=== PATIENT | male | born 1960 | race Caucasian/White ===

== ENCOUNTER 2017-04-12 10:36 | Day surgery (SDC) | payer OTHER ==
[2017-04-12] VITALS (10 sets, daily range): BP systolic 104–116; BP diastolic 66–77; PULSE 50–93; RESP 15–34; Ht 180.3 cm; Wt 72.0 kg
[~2017-04-12] VITALS: Ht 180.3 cm; Wt 72.0 kg
[2017-04-12 11:28] LABS: ADD SCAN DIFF NO
[2017-04-12 11:30] LABS: BASOPHIL # 0.1 10^3/ul (0.0-0.1); BASOPHILS % 0.8 % (0.0-2.0); EOSINOPHILS # 0.2 10^3/ul (0.0-0.5); EOSINOPHILS % 1.9 % (0.0-7.0); HEMATOCRIT 47.1 % (42.0-52.0); HEMOGLOBIN 16.4 g/dl (14.0-18.0); LYMPHOCYTES # 2.4 10^3/ul (0.8-2.9); LYMPHOCYTES % 30.3 % (15.0-51.0); MEAN CORPUSCULAR HEMOGLOBIN 31.8 pg (29.0-33.0); MEAN CORPUSCULAR HGB CONC 34.8 g/dl (32.0-37.0); MEAN CORPUSCULAR VOLUME 91.3 fl (82.0-101.0); MEAN PLATELET VOLUME 10.7 fl (7.4-10.4); MONOCYTE # 0.6 10^3/ul (0.3-0.9); MONOCYTES % 7.6 % (0.0-11.0); NEUTROPHIL # 4.7 10^3/ul (1.6-7.5); PLATELET COUNT 210 10^3/UL (140-415); RED BLOOD COUNT 5.16 10^6/ul (4.70-6.10); RED CELL DISTRIBUTION WIDTH 12.5 % (11.5-14.5); WHITE BLOOD COUNT 7.9 10^3/ul (4.8-10.8)
[2017-04-12] MEDS ORDERED: LACTATED RINGER'S 1,000 ML IV SCH (11:30)
[2017-04-12 11:46] LABS: INR 1.09; PROTIME 14.1 Sec (12.2-14.2); PT RATIO 1.1
[2017-04-12 11:47] LABS: PARTIAL THROMBOPLASTIN TIME 25.4 Sec (25.0-35.0)
[2017-04-12] MEDS ORDERED: BUPIVACAINE 0.5%/EPI (SDV) 10 ML INJ ONE (12:37)
[2017-04-12] MEDS ORDERED: LIDOCAINE 2%/EPI 30 ML INJ ONE (12:37)
--- NOTE | 2017-04-12 12:37 | HPN ---
Date/Time of Note Date/Time of Note DATE: 04/12/17 TIME: 12:37 Interval H&P Admission Note Pt. seen H&P reviewed: No system changes ADONAY RAMOS MD Apr 12, 2017 12:37
[2017-04-12] MEDS ORDERED: METOCLOPRAMIDE 10 MG INJ ONE (12:48)
[2017-04-12] MEDS ORDERED: MIDAZOLAM 1 MG/ML 2 ML INJ ONE (12:48)
[2017-04-12] MEDS ORDERED: PROPOFOL 20 ML ONE (12:48)
[2017-04-12] MEDS ORDERED: FENTAnyl 50 MCG/ML VIAL ONE (12:52)
[2017-04-12] MEDS ORDERED: HYDROmorphONE (0.2 MG/ML) 10ML SYG IV PRN ×3 (13:30)
[2017-04-12] MEDS ORDERED: ONDANSETRON 4 MG INJ IV PRN ×2 (13:30→14:30)
[2017-04-12] MEDS ORDERED: OXYCODONE/ACETAMINOPHEN (5/325) TAB PO PRN ×2 (13:30)
[2017-04-12] MEDS ORDERED: DIPHENHYDRAMINE 50 MG INJ IV PRN (13:30)
[2017-04-12] MEDS ORDERED: MEPERIDINE 25 MG INJ IV PRN (13:30)
[2017-04-12] MEDS ORDERED: METOCLOPRAMIDE 10 MG INJ IV PRN (13:30)
--- NOTE | 2017-04-12 14:10 | RADRPT ---
PROCEDURE: XR Chest. CLINICAL INDICATION: Preoperative. Skin cancer. TECHNIQUE: Single frontal view. COMPARISON: None. FINDINGS: The lungs are clear. The heart size is normal. There is no pleural effusion. There is no pneumothorax. IMPRESSION: 1. Normal chest radiograph. RPTAT: QQ .Stu Laws MD, MD Date Time Electronically viewed and signed by .Stu Laws MD, on 04/12/2017 14:09 .R/
--- NOTE | 2017-04-12 14:21 | OPR ---
Date/Time of Note Date/Time of Note DATE: 04/12/17 TIME: 14:16 Operative Report Free Text/Dictation Plastic Surgery Operative Report Preoperative diagnosis: left nose basal cell Postoperative diagnosis: same Procedure: left nose basal cell excision and flap Surgeon: иван Pappas.: n/a Anesthesia: gen EBL: min IV fluids: per flow sheet Findings: n/a Complications:none Dispo:home Indications for procedure: 57-year-old male presents today for excision of a left nose basal cell with a flap closure. The risks, benefits, alternatives of performing this procedure were discussed with the patient including the risks of bleeding, infection, wound healing problems, cosmetic deformity, distortion of normal structures, recurrence, need for revision, and the patient states that he understands these risks and would like to proceed with the procedure. All questions were answered, no guarantees were given with regards to the outcome of this procedure. Description of procedure: The patient was brought to the operating room at [facility] where general anesthesia was induced and the patient was prepped and draped in usual sterile fashion. 5 cc of a solution containing 2.5 cc of 0.25% Marcaine with 1: 200,000 epinephrine as well as 2.5 cc of 2% lidocaine with 1: 200,000 epinephrine were injected into the planned incision site. A 1 mm margin was marked around the lesion. This was incised with a 15 blade and then the lesion was excised in its entirety with the scissors. This was sent for pathology with a short stitch superior and long stitch lateral. The medial, superior, and lateral margins were positive. Therefore, an additional crescent of tissue was taken in these areas. These returned as negative. Final incision size was 1.5 x 1 cm. Hemostasis was achieved with the electrocautery. The wound was inspected. In order to distort the left eyelid and nose, a rotation flap was planned from the nose with a medial base. This was marked with a marking pen. The flap was incised with a 15 blade. It was rotated laterally. Significant undermining was performed underneath the flap and circumferentially. A small back cut was made to facilitate rotation. The flap came together without undue tension. Therefore it was inset with 5-0 Vicryl suture and 5-0 nylon suture. It was dressed with Steri-Strips. Flap size was 1.5 x 1.5 cm. The patient tolerated procedure well, there were no complications, follow-up information and wound care instructions were given ADONAY RAMOS MD Apr 12, 2017 14:21
[2017-04-12] MEDS ORDERED: morphine 2 MG INJ IV PRN (14:30)
[2017-04-12] MEDS ORDERED: HYDROCODONE/APAP (5/325) TAB PO PRN (14:30)
--- NOTE | 2017-04-12 15:30 | RADRPT ---
Vent Rate: 63 bpm RR Interval: 0 msec VT Interval: 136 msec QRS Duration: 90 msec QT Interval: 398 msec QTC Interval: 407 msec P-R-T [place]: 80 - 83 - 77 degrees Normal sinus rhythm Normal ECG Electronically Signed By: Brayden Sweeney [id number]
== END 2017-04-12 15:40 | disposition home or self-care (01) ==
LOC: SDS 10:36
PROVIDERS: ATTEND Surgery Plastic and Reconstructive Surgery
DX: C44.311 Basal cell carcinoma of skin of nose (principal)
CPT/HCPCS: 14060; 71010; 85025; 85610; 85730; 88305; 88331; 93005; J2250; J2765; J3010; Z7512; Z7610